=== PATIENT | female | born 1990 | race Caucasian/White ===

== ENCOUNTER 2020-10-29 17:56 | Inpatient (IN) ==
[2020-10-29] MEDS ORDERED: Dinoprostone 10 MG VAG.SUPP VAGINAL ONE (18:12)
[2020-10-29] MEDS ORDERED: diPHENhydraMINE 25 mg TAB PO ONE (19:28)
[2020-10-29] MEDS ORDERED: Dibucaine 1% OINT 28.35 GM TUBE PR PRN (21:15)
[2020-10-29] MEDS ORDERED: Witch Hazel PAD JAR TOPICAL SCH (22:00)
[2020-10-29 22:32] LABS: Urine Benzodiazepine Screen None Detected (None Detect); Urine Cannabinoids Screen None Detected (None Detect); Urine Opiates Screen None Detected (None Detect)
[2020-10-30] MEDS ORDERED: Oxytocin in LR 20 UNITS/1,000 ML BAG IVPB SCH (10:00)
[2020-10-30 10:50] LABS: ABS Eosinophils 0.1 10^3/ul (0-0.6); ABS Lymphocytes 1.8 10^3/ul (1.0-4.8); ABS Monocytes 0.7 10^3/ul (0-0.8); ABS Neutrophils 8.3 10^3/ul (1.5-7.7); Eosinophil % 0.8 %; Hematocrit 39 % (35-47); Hemoglobin 13.6 g/dL (12.0-16.0); Lymphocyte % 16.9 %; Mean Corpuscular HGB Conc 34 g/dL (31-36); Mean Corpuscular Hemoglobin 33 pg (27-31); Mean Corpuscular Volume 96 fL (80-97); Mean Platelet Volume 10.6 fL (7.4-10.4); Platelet Count 138 10^3/uL (150-450); Red Blood Count 4.12 10^6 /uL (3.70-4.87); Red Cell Distribution Width 14 % (10-15); White Blood Count 10.9 10^3/uL (3.5-10.8)
[2020-10-30] MEDS: Lactated Ringers 1000 ml BAG 1,000 ML IV SCH (19:00)
[2020-10-31] MEDS ORDERED: Buffered Lidocaine 1% SYRIN 1 ml INTRADERM ONE (00:16)
[2020-10-31] MEDS ORDERED: Lactated Ringers 1000 ml BAG 1,000 ML IV ONE ×2 (00:16→00:42)
[2020-10-31] MEDS ORDERED: EPHEDrine (Pressors) 50 MG/ML VIAL IV PUSH PRN ×2 (00:42)
[2020-10-31] MEDS ORDERED: Sodium Citrate/Citric Acid LIQ 15 ML UDC PO PRN (00:42)
[2020-10-31] MEDS ORDERED: Phenylephrine 40 mcg/mL 10mL (400mcg) SYRINGE IV PUSH PRN ×2 (00:42)
[2020-10-31] MEDS: Lactated Ringers 1000 ml BAG 1,000 ML IV SCH ×3 (01:00→22:30)
[2020-10-31] MEDS ORDERED: OBEPIDURAL 250 ML EPIDURAL SCH (01:00)
[2020-10-31 01:18] LABS: Urine Appearance Clear; Urine Bilirubin Negative (Negative); Urine Blood Negative (Negative); Urine Color Straw; Urine Glucose Negative (Negative); Urine Ketones Negative (Negative); Urine Nitrite Negative (Negative); Urine Protein Negative (Negative); Urine Specific Gravity 1.009 (1.002-1.030); Urine Urobilinogen Negative (Negative)
[2020-10-31] MEDS ORDERED: Bupivacaine 0.25% SDV PF 10 ML VIAL INJ ONE ×2 (13:08→17:20)
[2020-10-31] MEDS ORDERED: Sterile Water for Inj 10 ML ONE (13:08)
[2020-10-31] MEDS ORDERED: fentaNYL 100 mcg/2 ml 50 MCG/ML VIAL ONE (13:08)
[2020-10-31] MEDS ORDERED: Oxytocin in LR 20 UNITS/1,000 ML BAG IVPB SCH (15:00)
[2020-10-31] MEDS ORDERED: Lidocaine 2% PF 10 ML AMP ONE (17:20)
[2020-10-31] MEDS ORDERED: OBEPIDURAL 250 ML EPIDURAL ONE (17:33)
[2020-10-31] MEDS ORDERED: Ondansetron 4 mg VIAL 2 MG/ML 2 ml VIAL IV PRN (18:55)
[2020-10-31] MEDS ORDERED: Methylergonovine 0.2 mg AMPULE 1 ml AMP ONE (23:33)
[2020-11-01] MEDS ORDERED: Dibucaine 1% OINT 28.35 GM TUBE PR PRN (00:18)
[2020-11-01] MEDS ORDERED: Witch Hazel PAD JAR TOPICAL PRN (00:18)
[2020-11-01] MEDS ORDERED: Methylergonovine 0.2 mg AMPULE 1 ml AMP IM ONE (00:18)
[2020-11-01] MEDS ORDERED: ceFAZolin 2 GM in NS PREMIX 2 GM/100 ML BAG IVPB ONE (00:39)
[2020-11-01] MEDS ORDERED: Oxytocin in LR 20 UNITS/1,000 ML BAG IVPB SCH (01:00)
[2020-11-01] MEDS ORDERED: Lactated Ringers 1000 ml BAG 1,000 ML IV SCH (01:00)
[2020-11-01 10:06] LABS: ABS Lymphocytes 1.6 10^3/ul (1.0-4.8); ABS Neutrophils 20.6 10^3/ul (1.5-7.7); Eosinophil % 0.1 %; Hematocrit 28 % (35-47); Hemoglobin 9.9 g/dL (12.0-16.0); Lymphocyte % 6.8 %; Mean Corpuscular HGB Conc 35 g/dL (31-36); Mean Corpuscular Hemoglobin 33 pg (27-31); Mean Corpuscular Volume 94 fL (80-97); Mean Platelet Volume 10.7 fL (7.4-10.4); Platelet Count 102 10^3/uL (150-450); Red Cell Distribution Width 14 % (10-15); White Blood Count 23.2 10^3/uL (3.5-10.8)
[2020-11-02 08:11] VITALS: BP 131/79
[2020-11-02 09:34] LABS: ABS Basophils 0.1 10^3/ul (0-0.2); ABS Eosinophils 0.1 10^3/ul (0-0.6); ABS Lymphocytes 2.2 10^3/ul (1.0-4.8); ABS Monocytes 0.9 10^3/ul (0-0.8); Hematocrit 26 % (35-47); Hemoglobin 8.9 g/dL (12.0-16.0); Lymphocyte % 15.2 %; Mean Corpuscular HGB Conc 34 g/dL (31-36); Mean Corpuscular Hemoglobin 33 pg (27-31); Mean Corpuscular Volume 96 fL (80-97); Mean Platelet Volume 10.2 fL (7.4-10.4); Platelet Count 107 10^3/uL (150-450); Red Cell Distribution Width 14 % (10-15); White Blood Count 14.2 10^3/uL (3.5-10.8)
== END 2020-11-02 12:45 | disposition home or self-care (01) | DRG 541 ==
LOC: MCHOBOUT 17:56 → MCHOB 18:46
PROVIDERS: ADMIT Midwife; ATTEND Midwife